=== PATIENT | male | born 1980 | race Caucasian/White ===

== ENCOUNTER 2016-08-21 13:54 | Inpatient (IN) | payer MEDICARE, OTHER ==
[~2016-08-21] VITALS: Ht 182.9 cm; Wt 119.7 kg
[2016-08-21 16:23] LABS: HEMOGLOBIN 13.8 gm/dl (14.0-17.5); RED BLOOD COUNT 4.48 M/UL (4.20-5.50); WHITE BLOOD COUNT 6.4 K/UL (4.5-11.0)
[2016-08-21 16:31] LABS: BUN/CREATININE RATIO 13 (0-10)
[2016-08-22] MEDS ORDERED: TOPROL XL 50 MG50 MG PO (00:17)
[2016-08-22] MEDS ORDERED: GLUCOPHAGE 500500 MG PO (00:17)
[2016-08-22] MEDS ORDERED: PROZAC40 MG PO (00:18)
[2016-08-22] MEDS ORDERED: LISINOPRIL40 MG PO (00:18)
[2016-08-22] MEDS ORDERED: NEURONTIN 400400 MG PO (00:19)
[2016-08-22] MEDS ORDERED: PRILOSEC OTC20 MG PO (00:19)
[2016-08-22 04:43] LABS: HEMOGLOBIN 12.4 gm/dl (14.0-17.5); WHITE BLOOD COUNT 5.9 K/UL (4.5-11.0)
[2016-08-22 04:44] LABS: RED BLOOD COUNT 4.03 M/UL (4.20-5.50)
[2016-08-22 05:13] LABS: BUN/CREATININE RATIO 19 (0-10)
[2016-08-23 04:55] LABS: BUN/CREATININE RATIO 22 (0-10)
[2016-08-24 04:16] LABS: HEMOGLOBIN 12.3 gm/dl (14.0-17.5); WHITE BLOOD COUNT 5.9 K/UL (4.5-11.0)
[2016-08-24 04:41] LABS: BUN/CREATININE RATIO 26 (0-10)
--- NOTE | 2016-08-27 04:46 | NUR ---
0325 ENTERED PT ROOM TO ASSESS POST ATIVAN PER [facility], FOUND PT EATING ORANGE POWDER SUBSTANCE FROM WHAT LOOKED TO BE A WHITE MEDICINE BOTTLE. HE SAID IT WAS SUGAR HE EATS WHEN HE FEELS LIKE HIS BLOOD SUGAR IS DROPPING. I ASKED IF I COULD SEE THE BOTTLE HE SAID ITS HIS SISTERS BOTTLE THEY JUST USE IT TO REFILL THE SUGAR MEDICINE. HE THEN PROCEEDED TO RINSE THE BOTTLE TWICE WITH POP AND DRINK IT. HIS MOTHER THEN TOOK THE BOTTLE AND PUT IT IN HER POCKET. THIRTY MINUTES LATER THE PATIENT WAS SNORING AND REQUIRING OXYGEN SAT 88-89%. PT WAS THEN PLACE ON 3LNC SAT 95%. WCM.
[2016-08-27] MEDS ORDERED: ASPIR-LOW81 MG PO (10:02)
[2016-08-27] MEDS ORDERED: THERAGRAN TAB1 EA PO (10:18)
[2016-08-27] MEDS ORDERED: NICOTINE PATCH1 EAC1 TP (10:20)
[2016-08-27] MEDS ORDERED: IMDUR ER TAB 3030 MG PO (10:35)
== END 2016-08-27 11:17 | disposition home or self-care (01) | DRG 897 ==
LOC: ER1 13:54 → CCU 17:50 → ZEROF 17:50 → CCU 08-22 00:18
PROVIDERS: Emergency Medicine; Internal Medicine; ADMIT Internal Medicine Infectious Disease
DX: F10.230 Alcohol dependence with withdrawal, uncomplicated (principal); R07.9 Chest pain, unspecified; E11.9 Type 2 diabetes mellitus without complications; F17.210 Nicotine dependence, cigarettes, uncomplicated; I10 Essential (primary) hypertension; B19.20 Unspecified viral hepatitis C without hepatic coma; F32.9 Major depressive disorder, single episode, unspecified; E78.5 Hyperlipidemia, unspecified; R94.5 Abnormal results of liver function studies; Z79.84 Long term (current) use of oral hypoglycemic drugs; F19.10 Other psychoactive substance abuse, uncomplicated; F15.10 Other stimulant abuse, uncomplicated; Z79.899 Other long term (current) drug therapy; Z79.4 Long term (current) use of insulin; Y90.2 Blood alcohol level of 40-59 mg/100 ml
CPT/HCPCS: ECHO; 36415; 71010; 78452; 80053; 80074; 80307; 81001; 82550; 82553; 82962; 83735; 83874; 84100; 84484; 85025; 86780; 87390; 93005; 93017; 93306; 96372; 96374; 96375; 96376; 99285; A9502; G0480; J1630; J2060; J2550

== ENCOUNTER 2021-03-03 15:05 | Emergency (ER) | payer MEDICARE, OTHER ==
[~2021-03-03 15:05] MED LIST: ASPIR-LOW81 MG PO; CATAPRES 0.1MG0.1 MG PO; CYMBALTA30 MG PO; GLUCOPHAGE 500500 MG PO; GLUCOPHAGE1000 MG PO; HUMALOG 10100 UNITS/ SC; IMDUR ER TAB 3030 MG PO; LANTUS INS100 UTS/M1 SQ; LIBRIUM CAP 2525 MG PO; LISINOPRIL10 MG PO; LISINOPRIL40 MG PO; LOPRESSOR 25 MG25 MG PO; MELATONIN3 MG PO; METHADONE HCL40 MG PO; MIRTAZAPINE30 MG PO; NEURONTIN 400400 MG PO; NEURONTIN600 MG PO; NICOTINE PATCH1 EAC1 TP; NICOTINE PATCH1 EAC2 TOP; PRILOSEC OTC20 MG PO; PROZAC40 MG PO; ROPINIROLE HCL1 MG PO; TAB-A-VITE1 EACH PO; THERAGRAN TAB1 EA PO; TOPROL XL 50 MG50 MG PO; TRAZODONE HCL300 MG PO; WELLBUTRIN XL300 M1 PO; ZYPREXA20 MG PO
[2021-03-03] MEDS ORDERED: KENALOG 0.5% CR15 GM EXT (15:32)
== END 2021-03-03 15:36 | disposition home or self-care (01) ==
LOC: ER1 15:05
DX: R21 Rash and other nonspecific skin eruption (principal)
CPT/HCPCS: 99283

== ENCOUNTER 2021-05-07 10:36 | Emergency (ER) | payer MEDICARE, OTHER ==
[~2021-05-07 10:36] MED LIST changes: +KENALOG 0.5% CR15 GM EXT
[2021-05-07] MEDS ORDERED: ZYRTEC-D TABLE1 EACH PO (13:05)
[2021-05-07] MEDS ORDERED: AFRIN15 M1 (13:05)
== END 2021-05-07 13:16 | disposition home or self-care (01) ==
LOC: ER1 10:36
DX: J06.9 Acute upper respiratory infection, unspecified (principal); Z20.822 Contact with and (suspected) exposure to COVID-19; E11.9 Type 2 diabetes mellitus without complications; I10 Essential (primary) hypertension; F17.200 Nicotine dependence, unspecified, uncomplicated
CPT/HCPCS: 99283; U0002